=== PATIENT | male | born 1965 | race Caucasian/White ===

== ENCOUNTER 2019-09-09 23:45 | Inpatient (IN) | payer SELFPAY ==
[2019-09-10 00:41] VITALS: BMI 34.7
[2019-09-10] MEDS ORDERED: Senokot S 8.6-50 MG TAB PO PRN (01:22)
[2019-09-10] MEDS ORDERED: Bisacodyl 5 MG TAB PO PRN (01:22)
[2019-09-10] MEDS ORDERED: Dextrose 50% Abboject 50 ML SYRINGE SLOW IVP PRN (01:29)
[2019-09-10] MEDS ORDERED: Dextrose 5% in Water 1,000 ML IV PRN (01:29)
[2019-09-10] MEDS ORDERED: Aspirin 325 MG TAB PO SCH (01:45)
[2019-09-10] MEDS: Acetaminophen 325 MG TAB PO PRN ×4 (04:23→20:51)
[2019-09-10] MEDS: Loratadine 10 MG TAB PO PRN (04:50)
[2019-09-10 05:08] LABS: Hemoglobin A1c 13.8 % (4.0-6.0)
--- NOTE | 2019-09-10 05:17 | HP ---
CHIEF COMPLAINT: Slurred speech. HISTORY OF PRESENT ILLNESS: The patient is a 53-year-old male with a history of diabetes, currently on 2 oral antihyperglycemics, who presents to the hospital for slurred speech. 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 Today, his coworkers pointed out the fact that his speech had a significant amount of change from his baseline. At this time, he was brought into the hospital for further evaluation. The patient also states that he has been complaining of some sharp left-sided chest pain. Denies any shortness of breath on exertion. Denies any fevers or chills, any nausea, vomiting, or diarrhea. He denies any orthopnea or PND. The patient states that at times he does get tingling in both of his hands. PAST MEDICAL HISTORY: He has a history of diabetes and he is on 2 oral medications. The patient states that about 10 years ago, after working out in the sun, he came into the hospital with right-sided weakness. Initially, it was a stroke workup, which was negative for stroke. PAST SURGICAL HISTORY: He has had some hardware surgery to his left upper extremity. REVIEW OF SYSTEMS: All negative except for the ones mentioned above in the HPI. ALLERGIES: HE IS ALLERGIC TO XANAX. MEDICATIONS: He takes metformin 1000 mg twice a day and glipizide 10 mg twice a day. FAMILY HISTORY: No history of heart disease, cancer or strokes. SOCIAL HISTORY: The patient chews tobacco. Denies any alcohol use or drug use. He is a full code, and he is a reefer truck driver. LABORATORY DATA: WBCs of 8.4, hemoglobin of 15.3, hematocrit of 48.9, platelets of 265. Chemistry; sodium 139, potassium 3.7, BUN of 10, creatinine of 1.25. His sugar was 534. His troponins have been negative. He did have a CT angiogram and a CT brain. The CT brain did not show any acute abnormalities. The CT angiogram was unremarkable. He just had some mild atherosclerotic plaque in the right internal carotid. The CT brain that he had done, did not show any acute abnormalities. He did have a chest x-ray, which again did not show any acute abnormalities. PHYSICAL EXAMINATION: VITAL SIGNS: Temperature of 97.8, pulse 65, respiratory rate 20, O2 saturation 99% on room air, and blood pressure 141/86. GENERAL: He is awake, alert, and oriented x3. Does not appear in distress. HEENT: Normocephalic, atraumatic. He does have some slurred speech upon talking. CV: S1 and S2 present. No murmurs, rubs, or gallops. LUNGS: Clear to auscultation. No rhonchi or wheezes noted. ABDOMEN: Obese. Bowel sounds are present x2. EXTREMITIES: No edema. Pedal pulses are present x2. NEUROVASCULAR: No focal deficits noted. 5/5 upper extremity, 5/5 lower extremity strength. Cerebellum test is intact. However, his speech is noted to be slurred. SKIN: No cuts, lesions,or bruises noted. ASSESSMENT AND PLAN: The patient is a very pleasant 53-year-old male, who presents to the hospital with complaints of slurred speech. 1. Slurred speech, possible stroke. This has been going on for the past few days. CT head and CT angiogram are negative. We will get an MRI brain. However, patient states that he is very claustrophobic and will require anesthesia. He states that even some mild anxiolytics does not really calm him down. We will also get Neurology to see this patient. We will put the patient on aspirin and statin. Check a lipid level. Check a hemoglobin A1c given his elevated sugars, and get an echocardiogram. 2. Atypical chest pain. The patient states that his chest pain is very sharp in nature and this is reproducible on palpation. We will trend his troponins. We will get an echocardiogram. The patient may require a stress test. The patient had a stress test about many many years ago back in 2003 or 2005 according to the patient. 3. Diabetes, uncontrolled. His sugars have been very high. We will check a hemoglobin A1c. He may require insulin. 4. Hypertension. The patient actually was on a nitroglycerin drip at the outside ER due to his elevated blood pressure. I will start him on some beta-blockers and also on some lisinopril, and we will continue to monitor. 5. Deep vein thrombosis prophylaxis. We will put the patient on some subcu Lovenox. Job ID: [id number]
[2019-09-10 05:22] LABS: Anion Gap 9 mmol/L (10-20); BUN (Urea Nitrogen) 9 mg/dL (8.4-25.7); Calc. Creatinine Clearance 134 mL/min (70-130); Calcium 8.8 mg/dL (7.8-10.44); Carbon Dioxide 30 mmol/L (22-29); Cardiac Risk 5.3 (Less than 4.5); Chloride 107 mmol/L (98-107); Cholesterol 239 mg/dl (< 200 Desired); Estimated GFR-MDRD Greater than 90; Glucose 276 mg/dL (70-105); HDL Cholesterol 45 mg/dL (>60 Neg Risk); LDL Cholesterol, Calculated 146 mg/dL; Potassium 3.8 mmol/L (3.5-5.1); Sodium 142 mmol/L (136-145); Triglycerides 241 mg/dL (Less than 150)
[2019-09-10] MEDS: HumaLOG 300 UNITS/3 ML VIAL SC PRN ×2 (06:29→12:27)
[2019-09-10] MEDS: Aspirin 325 mg Enteric Coated Tablet PO SCH (08:57)
[2019-09-10] MEDS: Metoprolol Tartrate 25 MG TAB PO SCH ×2 (08:57→20:35)
[2019-09-10] MEDS: guaiFENesin ER 600 MG TAB PO SCH ×2 (08:58→20:35)
[2019-09-10] MEDS ORDERED: Enoxaparin Sodium 40 MG/0.4 ML SYRINGE SC SCH (09:00)
[2019-09-10] MEDS ORDERED: Lisinopril 20 MG TAB PO SCH (09:00)
--- NOTE | 2019-09-10 15:26 | CON ---
DATE OF CONSULTATION: 09/10/2019 CONSULTING PHYSICIAN: Hospitalist Services. IMPRESSION: 1. Probable small-vessel stroke secondary to his underlying diabetes. 2. Diabetes. PLAN: 1. Aspirin 325 mg per day. 2. Add a statin. 3. Echocardiogram. 4. Forego MRI of the brain due to his severe claustrophobia. HISTORY OF PRESENT ILLNESS: Mr. Christian is a 53-year-old man with a past history of diabetes. He was working as a truck driver teamster. He was talking on the phone when he noted that his speech became slurred. It was not associated with any other focal neurologic deficits. His symptoms have improved since onset. He was seen in the ER last night. His CT of the brain did not reveal any evidence of an ischemic injury. A CT angiogram was clear. His EKG shows normal sinus rhythm. His lab work was unremarkable. He denies any past history of stroke-like symptoms. His cholesterol risk ratio was 5.3. PAST MEDICAL HISTORY: Diabetes. ALLERGIES: XANAX. SOCIAL HISTORY: He chews tobacco. FAMILY HISTORY: Unremarkable. REVIEW OF SYSTEMS: Ten-system review of systems is otherwise negative. PHYSICAL EXAMINATION: VITAL SIGNS: Blood pressure 166/102, pulse 64, respirations 16, and temperature 97.9. HEENT: Pupils equal and reactive. Conjunctivae clear. Oropharynx clear. Cranium, normocephalic and atraumatic. NECK: Supple. No lymphadenopathy. EXTREMITIES: No cyanosis, clubbing, or edema. NEUROLOGIC EXAM: He was alert and cooperative. His speech was fluent with a questionably dysarthric quality. There was no facial asymmetry noted. There was no focal deficits present. His gait is steady and narrow based. There was no tremor or dysmetria present. Sensation was intact to touch. LABORATORY DATA: Laboratory studies were reviewed. IMAGING STUDIES: Imaging was reviewed. SUMMARY: This is a middle-aged man with a history of diabetes and apparent hypertension, who likely suffered a small vessel stroke. I agree with current management. Would forego the MRI given the severe claustrophobia. Job ID: [id number]
--- NOTE | 2019-09-10 15:28 | PDOC.HOSPP ---
- Subjective Encounter Date: 09/10/19 (f/u stroke) Encounter Time: 15:27 Subjective: Pt reports speech feels better today - states onset was 2 days ago and sx worse yesterday leading to ER evaluation. He c/o headache today. He uses 1/2 - 3/4 can chew tobacco today. He also reports he does not have health insurance. - Objective Vital Signs & Weight: Vital Signs (12 hours) Temp Pulse Pulse Pulse Resp BP BP 09/10/19 12:28 98.2 F 50 L 16 09/10/19 09:10 67 67 165/94 H 09/10/19 08:58 186/108 H 09/10/19 08:24 64 186/108 H 09/10/19 07:40 97.9 F 09/10/19 07:39 64 16 09/10/19 04:00 97.4 F L 70 16 BP BP Pulse Ox 09/10/19 12:28 130/64 98 09/10/19 09:10 185/103 H 09/10/19 08:58 09/10/19 08:24 09/10/19 07:40 09/10/19 07:39 166/102 H 97 09/10/19 04:00 141/86 H 96 Weight Weight 215 lb Result Diagrams: 09/10/19 04:52 Additional Labs: Accuchecks 09/10/19 09/10/19 10:28 06:22 POC Glucose 259 H 257 H EKG Reviewed by me: Yes (sinus 70's occ PVC's) Hospitalist ROS - Medication Medications: Active Medications Generic Name Dose Route Start Last Admin Trade Name Tina PRN Reason Stop Dose Admin Acetaminophen 650 mg 09/10/19 01:22 09/10/19 08:58 Tylenol PO 650 mg Q4H PRN Administration Headache/Fever/Mild Pain (1-3) Aspirin 325 mg 09/10/19 09:00 09/10/19 08:57 Ecotrin PO 325 mg DAILY MINH Administration Enoxaparin Sodium 40 mg 09/10/19 09:00 09/10/19 08:57 Lovenox SC 40 mg 0900 MINH Administration Guaifenesin 600 mg 09/10/19 09:00 09/10/19 08:58 Mucinex PO 600 mg Q12HR MINH Administration Loratadine 10 mg 09/10/19 04:37 09/10/19 04:50 Claritin PO 10 mg DAILYPRN PRN Administration Allergies Metoprolol Tartrate 25 mg 09/10/19 09:00 09/10/19 08:57 Lopressor PO 25 mg BID MINH Administration Sodium Chloride 10 ml 09/10/19 01:28 09/10/19 08:59 Flush - Normal Saline IVF 10 ml PRN PRN Administration Saline Flush - Exam General Appearance: NAD Heart: RRR, no murmur Respiratory: CTAB, no wheezes, no rales, no ronchi Gastrointestinal: soft, non-tender, non-distended, normal bowel sounds Extremities: no cyanosis, no clubbing, no edema Neurological - other findings: speech slowed Psychiatric: normal affect Hosp A/P (1) Ischemic stroke Code(s): I63.9 - CEREBRAL INFARCTION, UNSPECIFIED Status: Acute (2) Hypertension Code(s): I10 - ESSENTIAL (PRIMARY) HYPERTENSION Status: Acute (3) Dyslipidemia Code(s): E78.5 - HYPERLIPIDEMIA, UNSPECIFIED Status: Chronic (4) Diabetes mellitus Code(s): E11.9 - TYPE 2 DIABETES MELLITUS WITHOUT COMPLICATIONS Status: Chronic Qualifiers: Diabetes mellitus type: type 2 Diabetes mellitus complication status: with neurologic complications Diabetes mellitus complication detail: with other neurological complication (5) Tobacco abuse Code(s): Z72.0 - TOBACCO USE Status: Chronic (6) Headache Code(s): R51 - HEADACHE Status: Acute Qualifiers: Headache type: unspecified - Plan Appreciate Neurology consult - probably small vessel stroke -> continue aspirin , statin, obtain echo - speech therapy - will d/c the lisinopril to allow for permissive htn given the sx started only 2 days ago - continue the metoprolol for now and obtain echo - MRI cancelled as pt is claustrophobic DM uncontrolled - continue glipizide bid - start 70/30 insulin as I think this will be the most cost effective one for the patient - resume metformin tomorrow - on hold due to contrast scan tobacco abuse - pt desires nicotine patch headache - tylenol prn dvt prophy - ambulatory gi prophy - not indicated code status full reviewed plan of care with patient, no questions or further needs at end of eval.
[2019-09-10] MEDS: Nicotine 7 MG PATCH TD SCH (17:27)
[2019-09-10] MEDS: HumuLIN 70/30 (300 UNITS/3 ML VIAL) SC SCH (17:35)
[2019-09-10] MEDS: Atorvastatin Calcium 40 MG TAB PO SCH (20:35)
--- NOTE | 2019-09-10 20:48 | CON ---
DATE OF CONSULTATION: HISTORY OF PRESENT ILLNESS: The patient is a 53-year-old gentleman who presents with slurred speech and reported having left-sided chest discomfort. The patient has no previous cardiac history. The patient states for the past several days, he has had episodes of left-sided chest discomfort that would last for several hours. This happened on a few occasions during the past week. He presented to the emergency room with acute onset of slurred speech. The patient was noted to be markedly hypertensive and admitted for further evaluation. The patient denies having any present chest discomfort. PAST MEDICAL HISTORY: 1. Hypertension. 2. Diabetes mellitus. 3. Kidney stones. 4. Obesity. PAST SURGICAL HISTORY: Left arm surgery. SOCIAL HISTORY: Nonsmoker. FAMILY HISTORY: Positive family history of coronary artery disease. MEDICATIONS: Metformin 1000 b.i.d., glipizide 10 daily. REVIEW OF SYSTEMS: Ten-point system otherwise unremarkable. PHYSICAL EXAMINATION: GENERAL: This is an obese gentleman, in no acute distress. VITAL SIGNS: Blood pressure was 130/64. NECK: No jugular venous distention. LUNGS: Clear to auscultation. HEART: Regular rate and rhythm. Normal S1 and S2 with no murmurs. ABDOMEN: Nondistended. EXTREMITIES: Show no edema. VASCULAR: Radial pulses are 2+. LABORATORY DATA: Sodium 142, potassium 3.8, chloride 107, bicarbonate 30, BUN 9 , creatinine 0.86. Cholesterol was 239. His white blood cell count 8.4, hemoglobin 15.3, hematocrit 48.9, platelets are 265. His EKG revealed normal sinus rhythm, normal ECG. IMPRESSION: 1. Cerebrovascular accident. 2. Chest pain. 3. Hypertension. 4. Diabetes mellitus. 5. Dyslipidemia. 6. Noncompliance. PLAN: This gentleman presented with a cerebrovascular accident, secondary to apparently small-vessel disease. The patient has been noncompliant with his medications. From a cardiac standpoint, his chest pain may have been secondary to his severely elevated blood pressure. A stress test will be obtained to make sure there is no evidence of significant ischemia. The patient should be on aspirin , ahigh dose of lipid-lowering medication as well as antihypertensive medication. We will follow this patient with you through his hospitalization. Job ID: [id number] [facility]
[2019-09-11 05:36] LABS: #Basophils 0.1 thou/uL (0.0-0.2); #Eosinphils 0.3 thou/uL (0.0-0.7); #Lymphocytes 2.8 thou/uL (1.20-3.40); #Monocytes 0.5 thou/uL (0.11-0.59); #Neutrophils 5.1 thou/uL (1.40-6.50); %Eosinophils 3.4 % (0.0-10.0); %Lymphocytes 31.9 % (21.0-51.0); %Monocytes 6.1 % (0.0-10.0); %Neutrophils 57.6 % (42.0-75.0); Hemoglobin 14.1 g/dL (14.0-18.0); Mean Corpuscular HGB CONC 33.1 g/dL (32.0-36.0); Mean Corpuscular Hemoglobin 29.5 pg (27.0-31.0); Mean Platelet Volume 9.4 fL (7.4-10.4); Platelet Count 246 thou/uL (130-400); RBC Distribution Width 12.7 % (11.5-14.5); Red Blood Cell (RBC) Count 4.77 mill/uL (4.70-6.10); White Blood Cell (WBC) Count 8.8 thou/uL (4.8-10.8)
[2019-09-11 05:57] LABS: Anion Gap 11 mmol/L (10-20); BUN (Urea Nitrogen) 11 mg/dL (8.4-25.7); Calc. Creatinine Clearance 121 mL/min (70-130); Calcium 8.9 mg/dL (7.8-10.44); Carbon Dioxide 27 mmol/L (22-29); Chloride 107 mmol/L (98-107); Estimated GFR-MDRD 82; Glucose 229 mg/dL (70-105); Potassium 3.8 mmol/L (3.5-5.1); Sodium 141 mmol/L (136-145)
[2019-09-11] MEDS: guaiFENesin ER 600 MG TAB PO SCH ×2 (08:19→21:04)
[2019-09-11] MEDS: Loratadine 10 MG TAB PO PRN (08:19)
[2019-09-11] MEDS: Aspirin 325 mg Enteric Coated Tablet PO SCH (08:19)
[2019-09-11] MEDS: Acetaminophen 325 MG TAB PO PRN ×3 (08:19→21:09)
--- NOTE | 2019-09-11 12:13 | PDOC.HOSPP ---
- Subjective Encounter Date: 09/11/19 (f/u stroke) Encounter Time: 12:11 Subjective: Pt reports his speech is intermittently better and worse, about the same as yesterday. He denies any chest pain. Does report some difficulty with breathing when he lays down at night - occurring since admission. He denies any n/v/abd pain. He does report aching in his left jaw and left ear - states intermittent and chronic - Objective Vital Signs & Weight: Vital Signs (12 hours) Temp Pulse Resp BP Pulse Ox 09/11/19 08:03 98.6 F 61 20 128/83 94 L 09/11/19 04:00 98.1 F 57 L 16 130/80 92 L Weight Weight 215 lb I&O: 09/10/19 09/11/19 09/12/19 06:59 06:59 06:59 Intake Total 200 50 Balance 200 50 Result Diagrams: 09/11/19 05:05 09/11/19 05:05 Additional Labs: Accuchecks 09/11/19 09/11/19 09/10/19 10:43 05:58 20:58 POC Glucose 221 H 211 H 230 H 09/10/19 17:20 POC Glucose 236 H EKG Reviewed by me: Yes (tele - sinus 50's) Hospitalist ROS - Medication Medications: Active Medications Generic Name Dose Route Start Last Admin Trade Name Freq PRN Reason Stop Dose Admin Acetaminophen 650 mg 09/10/19 01:22 09/11/19 08:19 Tylenol PO 650 mg Q4H PRN Administration Headache/Fever/Mild Pain (1-3) Aspirin 325 mg 09/10/19 09:00 09/11/19 08:19 Ecotrin PO 325 mg DAILY MINH Administration Atorvastatin Calcium 80 mg 09/10/19 21:00 09/10/19 20:35 Lipitor PO 80 mg HS MINH Administration Guaifenesin 600 mg 09/10/19 09:00 09/11/19 08:19 Mucinex PO 600 mg Q12HR MINH Administration Loratadine 10 mg 09/10/19 04:37 09/11/19 08:19 Claritin PO 10 mg DAILYPRN PRN Administration Allergies Metoprolol Tartrate 25 mg 09/10/19 09:00 09/10/19 20:35 Lopressor PO 25 mg BID MINH Administration Nicotine 7 mg 09/10/19 16:00 09/10/19 17:27 Nicoderm Patch TD 7 mg Q24HR MINH Administration Sodium Chloride 10 ml 09/10/19 01:28 09/11/19 08:20 Flush - Normal Saline IVF 10 ml PRN PRN Administration Saline Flush - Exam General Appearance: NAD Heart: RRR, no murmur Respiratory: CTAB, no wheezes, no rales, no ronchi Gastrointestinal: soft, non-tender, non-distended, normal bowel sounds Extremities: no cyanosis, no clubbing, no edema Neurological - other findings: speech slowed Psychiatric: normal affect Hosp A/P (1) Ischemic stroke Code(s): I63.9 - CEREBRAL INFARCTION, UNSPECIFIED Status: Acute (2) Hypertension Code(s): I10 - ESSENTIAL (PRIMARY) HYPERTENSION Status: Acute (3) Dyslipidemia Code(s): E78.5 - HYPERLIPIDEMIA, UNSPECIFIED Status: Chronic (4) Diabetes mellitus Code(s): E11.9 - TYPE 2 DIABETES MELLITUS WITHOUT COMPLICATIONS Status: Chronic Qualifiers: Diabetes mellitus type: type 2 Diabetes mellitus complication status: with neurologic complications Diabetes mellitus complication detail: with other neurological complication (5) Tobacco abuse Code(s): Z72.0 - TOBACCO USE Status: Chronic (6) Headache Code(s): R51 - HEADACHE Status: Acute Qualifiers: Headache type: unspecified - Plan Appreciate Neurology consult - probably small vessel stroke -> continue aspirin , statin, obtain echo - speech therapy - lisinopril d/c yesterday - bp's 120-130's without it, no indication for this - continue low dose beta-sal DM uncontrolled - continue glipizide bid and metformin - 70/30 insulin started yesterday - will increase to 15 mg BID with meals, pt will need to purchase a monitor after discharge tobacco abuse - nicotine patch prn dvt prophy - ambulatory gi prophy - not indicated code status full reviewed plan of care with patient, no questions or further needs at end of eval. Addendum- pt declined stress test. He is unfunded, will need to find a PCP to follow up with for management of DM, and for referral to continue work with speech therapy. 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 Anticipate discharge tomorrow, and he has a ride that can pick him up in only in the morning.
[2019-09-11] MEDS: Metoprolol Tartrate 25 MG TAB PO SCH ×2 (12:22→21:04)
[2019-09-11] MEDS: HumuLIN 70/30 (300 UNITS/3 ML VIAL) SC SCH ×2 (13:40→17:33)
[2019-09-11] MEDS: Nicotine 7 MG PATCH TD SCH (16:17)
[2019-09-11] MEDS ORDERED: HumaLOG 300 UNITS/3 ML VIAL SC PRN (17:52)
[2019-09-11] MEDS: Atorvastatin Calcium 40 MG TAB PO SCH (21:04)
[2019-09-12] MEDS: Acetaminophen 325 MG TAB PO PRN (06:59)
[2019-09-12 08:01] VITALS: BP 139/81; TEMP 97.3
--- NOTE | 2019-09-12 08:17 | PDOC.HOSPP ---
- Subjective Encounter Date: 09/12/19 Encounter Time: 10:00 Subjective: Patient with improvement in his slurred speech. Ambulating well. No complaints. Ready to go home. Friend can drive him to [place] today and he has a PCP up there. Needs paper Rx to bring up there and get filled. States he knows how to inject insulin and check his blood sugars. - Objective Vital Signs & Weight: Vital Signs (12 hours) Temp Pulse Resp BP BP Pulse Ox 09/12/19 07:45 97.3 F L 62 16 139/81 99 09/12/19 03:45 97.6 F 53 L 18 129/63 95 09/12/19 00:00 97.7 F 54 L 14 133/75 97 Weight Weight 215 lb I&O: 09/11/19 09/12/19 09/13/19 06:59 06:59 06:59 Intake Total 200 530 Balance 200 530 Result Diagrams: 09/11/19 05:05 09/11/19 05:05 Additional Labs: Accuchecks 09/12/19 09/11/19 09/11/19 06:35 22:54 21:05 POC Glucose 184 H 216 H 253 H 09/11/19 09/11/19 17:17 10:43 POC Glucose 351 H 221 H Hospitalist ROS - Review of Systems Constitutional: denies: fever, chills Respiratory: denies: cough, shortness of breath Cardiovascular: denies: chest pain, palpitations, orthopnea Gastrointestinal: denies: nausea, vomiting, abdominal pain - Medication Medications: Active Medications Generic Name Dose Route Start Last Admin Trade Name Freq PRN Reason Stop Dose Admin Acetaminophen 650 mg 09/10/19 01:22 09/12/19 06:59 Tylenol PO 650 mg Q4H PRN Administration Headache/Fever/Mild Pain (1-3) Aspirin 325 mg 09/10/19 09:00 09/11/19 08:19 Ecotrin PO 325 mg DAILY MINH Administration Atorvastatin Calcium 80 mg 09/10/19 21:00 09/11/19 21:04 Lipitor PO 80 mg HS MINH Administration Guaifenesin 600 mg 09/10/19 09:00 09/11/19 21:04 Mucinex PO 600 mg Q12HR MINH Administration Insulin Human Isoph/Insulin Regular 15 units 09/11/19 17:00 09/11/19 17:33 Humulin 70/30 SC 15 unit BID-WM MINH Administration Insulin Human Lispro 0 units 09/11/19 17:52 09/11/19 22:52 Humalog SC 2 unit .BEDTIME SLIDING SC PRN Administration Bedtime Correctional Scale Loratadine 10 mg 09/10/19 04:37 09/11/19 08:19 Claritin PO 10 mg DAILYPRN PRN Administration Allergies Metoprolol Tartrate 25 mg 09/10/19 09:00 09/11/19 21:04 Lopressor PO 25 mg BID MINH Administration Nicotine 7 mg 09/10/19 16:00 09/11/19 16:17 Nicoderm Patch TD 7 mg Q24HR MINH Administration Sodium Chloride 10 ml 09/10/19 01:28 09/11/19 08:20 Flush - Normal Saline IVF 10 ml PRN PRN Administration Saline Flush - Exam General Appearance: NAD Eye: anicteric sclera ENT: moist mucosa Heart: RRR, no murmur, no gallops, no rubs Respiratory: CTAB, no wheezes, no rales, no ronchi Gastrointestinal: soft, non-tender, non-distended, normal bowel sounds Neurological - other findings: mild slurring of speech Psychiatric: normal affect, normal behavior, A&O x 3 Hosp A/P (1) Ischemic stroke Code(s): I63.9 - CEREBRAL INFARCTION, UNSPECIFIED Status: Acute (2) Hypertension Code(s): I10 - ESSENTIAL (PRIMARY) HYPERTENSION Status: Acute Qualifiers: Hypertension type: essential hypertension Qualified Code(s): I10 - Essential (primary) hypertension (3) Diabetes mellitus Code(s): E11.9 - TYPE 2 DIABETES MELLITUS WITHOUT COMPLICATIONS Status: Chronic Qualifiers: Diabetes mellitus type: type 2 Diabetes mellitus complication status: with neurologic complications Diabetes mellitus complication detail: with other neurological complication (4) Dyslipidemia Code(s): E78.5 - HYPERLIPIDEMIA, UNSPECIFIED Status: Chronic (5) Tobacco abuse Code(s): Z72.0 - TOBACCO USE Status: Chronic - Plan Patient refusing stress test D/c home today, friend picking him up to bring him back to [place], needs to leave by noon Needs paper scripts
[2019-09-12] MEDS: HumuLIN 70/30 (300 UNITS/3 ML VIAL) SC SCH (09:33)
[2019-09-12] MEDS: Metoprolol Tartrate 25 MG TAB PO SCH (09:34)
[2019-09-12] MEDS: guaiFENesin ER 600 MG TAB PO SCH (09:34)
[2019-09-12] MEDS: Aspirin 325 mg Enteric Coated Tablet PO SCH (09:34)
--- NOTE | 2019-09-13 04:15 | DIS ---
DATE OF ADMISSION: 09/09/2019 DATE OF DISCHARGE: 09/12/2019 PRIMARY CARE PHYSICIAN: Yasir Vera. REASON FOR ADMISSION: Acute stroke. DIAGNOSES AT DISCHARGE: 1. Acute ischemic stroke. 2. Hypertension. 3. Chest pain, resolved. The patient refusing stress test. 4. Diabetes mellitus, type 2, now insulin dependent. 5. Dyslipidemia. 6. Tobacco abuse. PROCEDURES: 1. Echocardiogram showing an ejection fraction of 50% to 55%, and impaired relaxation compatible with diastolic dysfunction. 2. CT of the brain without contrast showing no acute intracranial abnormalities. 3. CT angiography of the brain and neck showing unremarkable CT angio of the head and neck. CONSULTATIONS: 1. Neurology, Dr. Gonsalves. 2. Cardiology, Dr. Villegas. SUMMARY OF HOSPITAL COURSE: This is a 53-year-old white male with a history of diabetes mellitus, on oral hypoglycemics, who presented to the hospital with slurred speech. 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 He noted slurred speech going on for couple of days and it got worse, so he came into the hospital. He also has been having some sharp left-sided chest pain. The patient had imaging done as above. He also had elevated blood pressures on admission. The patient was recommended to get an MRI of the brain; however, he said he has claustrophobia and refused it in spite of offers of anxiolytics. He did have consultation by Dr. Gonsalves, who diagnosed him with small vessel stroke. The patient, for the chest pain, had a Cardiology consult and echocardiogram showed results as above. Dr. Villegas recommended a stress test, however, the patient refused this as well. His slurred speech improved during hospitalization. He was placed on aspirin along with metoprolol with good control of blood pressure and resolution of all of his chest pain. He was put on high- dose atorvastatin and also started on Humulin 70/30 to control his blood sugars. On the day of discharge, the patient was doing markedly better. He desires to go back up to his home in [place] and follow up with his primary care physician there. He has been instructed on insulin injections and checking his blood sugars. DISCHARGE MANAGEMENT: Discharged home. FOLLOWUP: Follow up with primary care physician in the next 1 to 2 weeks. ACTIVITY: As tolerated. DIET: Diabetic diet. MEDICATIONS: 1. Aspirin 325 mg daily, 30 tablets dispensed. 2. Atorvastatin 80 mg daily, 30 tablets dispensed. 3. Humulin 70/30, 15 units subcu twice a day, three vials along with needles and supplies dispensed. 4. Metformin 1000 mg twice a day, 60 tablets dispensed. 5. Metoprolol tartrate 25 mg twice a day, 60 tablets dispensed. Job ID: [id number] MTDD
== END 2019-09-12 12:03 | disposition home or self-care (01) | DRG 66 ==
LOC: OBSVTOIN 23:45 → 2SE 23:45
PROVIDERS: ADMIT Internal Medicine; ATTEND Internal Medicine
DX: I63.81 Other cerebral infarction due to occlusion or stenosis of small artery (principal); E78.5 Hyperlipidemia, unspecified; I10 Essential (primary) hypertension; R47.81 Slurred speech; R07.89 Other chest pain; E11.65 Type 2 diabetes mellitus with hyperglycemia; F17.220 Nicotine dependence, chewing tobacco, uncomplicated; R51 Headache; E66.9 Obesity, unspecified; R29.701 NIHSS score 1; Z88.8 Allergy status to other drugs, medicaments and biological substances; Z68.34 Body mass index [BMI] 34.0-34.9, adult; Z91.19 Patient's noncompliance with other medical treatment and regimen; Z79.84 Long term (current) use of oral hypoglycemic drugs
CPT/HCPCS: 36415; 36416; 78451; 80048; 80061; 83036; 85025; 93306; A9500; J1650; J1815